=== PATIENT | male | born 1990 | race Caucasian/White ===

== ENCOUNTER 2021-01-27 18:16 | Emergency (ER) | payer OTHER ==
[2021-01-27] MEDS ORDERED: IBUPROFEN 400 MG TABLET (FP) PO ONE ×2 (18:25→18:53)
[2021-01-27] MEDS ORDERED: LIDOCAINE 5% TOPICAL PATCH TP ONE (18:44)
[2021-01-27 18:49] VITALS: BP 130/93; PULSE 92; TEMP 99.2; BMI 27.1
[2021-01-27] MEDS ORDERED: LIDOCAINE 5% TOPICAL PATCH ONE (18:53)
[2021-01-27] MEDS ORDERED: LIDOCAINE PATCH REMOVAL MC SCH (22:00)
== END 2021-01-27 19:11 | disposition home or self-care (01) ==
LOC: FER 18:16
DX: M25.511 Pain in right shoulder (principal); M25.512 Pain in left shoulder; G89.29 Other chronic pain
CPT/HCPCS: 99284-25